=== PATIENT | male | born 1935 | race African-American/Black ===

== ENCOUNTER → 2017-08-16 | Outpatient (CLI) | payer OTHER | LOC: HYPER 06:40 | DX: E11.620 Type 2 diabetes mellitus with diabetic dermatitis (principal); I87.323 Chronic venous hypertension (idiopathic) with inflammation of bilateral lower extremity; I89.0 Lymphedema, not elsewhere classified; E78.00 Pure hypercholesterolemia, unspecified; K21.9 Gastro-esophageal reflux disease without esophagitis; L40.9 Psoriasis, unspecified; G47.30 Sleep apnea, unspecified; J44.9 Chronic obstructive pulmonary disease, unspecified; Z87.891 Personal history of nicotine dependence ==